=== PATIENT | male | born 1960 | race Caucasian/White ===

== ENCOUNTER 2016-09-10 01:33 | Emergency (ER) | payer OTHER ==
[~2016-09-10] VITALS: Ht 172.7 cm; Wt 104.3 kg
[2016-09-10 01:52] VITALS: BP_SYST 156
--- NOTE | 2016-09-10 01:52 | NUR ---
Patient to [facility] for evaluation. Side rails up.
--- NOTE | 2016-09-10 02:00 | NUR ---
PT brought in by [employer], C/o right knee pain , here for medical clearance. Dr Ray menchaca.
--- NOTE | 2016-09-10 02:30 | NUR ---
ER at bedside examining patient.
[2016-09-10] MEDS ORDERED: LISINOPRIL 10 MG TABLET (PRINIVIL) PO ONE (02:45)
--- NOTE | 2016-09-10 03:00 | NUR ---
Medicated as per MD Orders. Tolerated well.
--- NOTE | 2016-09-10 03:30 | NUR ---
Patient given written and verbal discharge instructions and verbalizes understanding. ER MD discussed with patient the results and treatment provided. Given copies of tests performed in ER. Patient in stable condition. ID arm band removed. No Rx given. Patient educated on pain management and to follow up with PMD. Pain Scale 0/10. Opportunity for questions provided and answered.
[2016-09-10 03:49] VITALS: BP_SYST 158
== END 2016-09-10 03:30 | disposition home or self-care (01) ==
LOC: SED 01:33
DX: Z02.89 Encounter for other administrative examinations (principal); I10 Essential (primary) hypertension; M25.561 Pain in right knee; G89.29 Other chronic pain
CPT/HCPCS: 99283